=== PATIENT | female | born 1930 | race Hispanic/Latino ===

== ENCOUNTER 2016-08-03 12:17 | Inpatient (IN) | payer MEDICARE ==
--- NOTE | 2016-08-03 13:30 | Emergency Department Report ---
HPI - General Chief Complaint: Altered Mental Status Time Seen by Provider: 08/03/16 13:09 - HPI HPI: Room 26 The patient is an 86-year-old female presenting with a chief complaint of altered mental status. The patient is currently at [facility]. The patient was reported to have altered mental status as her current mental status differs from her baseline. The patient appears sleepy but awakens to voice and has nonsensical speech. The patient has a history of dementia Location: Mental state Duration: [see above] Quality: Altered Severity: Moderate Modifying factors: [see above] Context: [see above] Mode of transportation: [not driving] ED Past Medical Hx - Past Medical History Previous Medical History?: Yes Hx Hypertension: Yes Hx Headaches / Migraines: Yes Hx Psychiatric Treatment: (depression) Hx Dementia: Yes Additional medical history: high cholesterol, DDD - Surgical History Past Surgical History?: Yes Hx Cholecystectomy: Yes Hx Appendectomy: Yes Additional Surgical History: hysterectomy, bilateral hip replacement, tonsillectomy - Family History Family history: no significant - Social History Smoking Status: Unknown if ever smoked Substance Use Type: None - Medications Home Medications: Home Medications Medication Instructions Recorded Confirmed Last Taken Type Carvedilol [Coreg] 3.125 mg PO BID 08/03/16 08/03/16 Unknown History Divalproex [Suzie MASON] 250 mg PO BID 08/03/16 08/03/16 Unknown History Donepezil [Aricept] 10 mg PO QHS 08/03/16 08/03/16 Unknown History Escitalopram Oxalate [Lexapro] 5 mg PO QAM 08/03/16 08/03/16 Unknown History Lisinopril [Zestril] 20 mg PO QAM 08/03/16 08/03/16 Unknown History [place] Carbonate 300 mg PO QHS 08/03/16 08/03/16 Unknown History Memantine HCl [Namenda] 5 mg PO QAM 08/03/16 08/03/16 Unknown History Pantoprazole [Protonix] 40 mg PO QAM 08/03/16 08/03/16 Unknown History Quetiapine Fumarate [SEROquel] 50 mg PO BID 08/03/16 08/03/16 Unknown History Simvastatin [Zocor TAB] 20 mg PO QHS 08/03/16 08/03/16 Unknown History Topiramate [Topamax TAB] 50 mg PO QAM 08/03/16 08/03/16 Unknown History ED Review of Systems ROS: Stated complaint: AMS Other details as noted in HPI Comment: Unobtainable due to pts medical conditions Physical Exam - Physical Exam Vital Signs: Vital Signs 08/03/16 12:48 Pulse Rate 65 Respiratory 14 Rate Blood Pressure 140/47 O2 Sat by Pulse 100 Oximetry Physical Exam: GENERAL: The patient is well-developed well-nourished elderly female lying on stretcher asleep but easily awakens to voice. [] HEENT: Normocephalic. Atraumatic. Extraocular motions are intact. Patient has moist mucous membranes. NECK: Supple. Trachea midline CHEST/LUNGS: Clear to auscultation. There is no respiratory distress noted. HEART/CARDIOVASCULAR: Regular. There is no tachycardia. There is no gallop rub or murmur. ABDOMEN: Abdomen is soft, nontender. Patient has normal bowel sounds. There is no abdominal distention. SKIN: There is no rash. There is no edema. There is no diaphoresis. NEURO: The patient is asleep but easily awakened by voice. The patient has nonsensical speech. The patient is cooperative. MUSCULOSKELETAL: There is no tenderness. The right lower extremity is flexed at the hip and knee and internally rotated. Questionable deformity at the right hip. Patient does not exhibit pain when the right lower extremity is moved. ED Course Vital Signs 08/03/16 12:48 Pulse Rate 65 Respiratory 14 Rate Blood Pressure 140/47 O2 Sat by Pulse 100 Oximetry ED Medical Decision Making - Lab Data Result diagrams: 08/03/16 13:22 08/03/16 13:22 Laboratory Tests 08/03/16 08/03/16 08/03/16 13:22 13:22 13:22 WBC 10.0 RBC 4.58 Hgb 14.0 Hct 42.2 MCV 92 MCH 31 MCHC 33 RDW 14.2 Plt Count 183 Lymph % (Auto) 12.1 L [place] % (Auto) 6.6 Eos % (Auto) 1.8 Baso % (Auto) 0.5 Lymph # 1.2 [place] # 0.7 Eos # 0.2 Baso # 0.0 Seg Neutrophils % 79.0 H Seg Neutrophils # 7.9 H Sodium 139 Potassium 4.7 Chloride 103.0 Carbon Dioxide 24 Anion Gap 17 BUN 47 H Creatinine 1.5 H Estimated GFR 33 BUN/Creatinine Ratio 31.33 Glucose 108 H Calcium 9.0 Magnesium 2.6 H Total Bilirubin 0.3 AST 16 ALT 9 Alkaline Phosphatase 51 Ammonia 28.0 Total Creatine Kinase CK-MB (CK-2) CK-MB (CK-2) Rel Index Troponin T Total Protein 7.3 Albumin 4.0 Albumin/Globulin Ratio 1.2 TSH Free T4 Urine Bilirubin Urine RBC (Auto) U Epithel Cells (Auto) 08/03/16 08/03/16 08/03/16 13:22 13:22 14:51 WBC RBC Hgb Hct MCV MCH MCHC RDW Plt Count Lymph % (Auto) [place] % (Auto) Eos % (Auto) Baso % (Auto) Lymph # [place] # Eos # Baso # Seg Neutrophils % Seg Neutrophils # Sodium Potassium Chloride Carbon Dioxide Anion Gap BUN Creatinine Estimated GFR BUN/Creatinine Ratio Glucose Calcium Magnesium Total Bilirubin AST ALT Alkaline Phosphatase Ammonia Total Creatine Kinase 28 L CK-MB (CK-2) 1.1 CK-MB (CK-2) Rel Index 3.9 Troponin T < 0.010 Total Protein Albumin Albumin/Globulin Ratio TSH 5.860 H Free T4 1.08 Urine Bilirubin Neg Urine RBC (Auto) < 1.0 U Epithel Cells (Auto) < 1.0 15:18 Unresulted labs still pending secondary to equipment maintenance - EKG Data -: EKG Interpreted by Me EKG shows normal: sinus rhythm Rate: normal - EKG Data When compared to previous EKG there are: previous EKG unavailable Interpretation: nonspecific ST-T wave courtney (T-wave inversion in lead 1 and aVL) - Radiology Data Radiology results: report reviewed (CT head), image reviewed (CT head, bilateral hip x-rays) interpreted by me: Bilateral hip x-rays-no acute fractures, no dislocations. Bilateral hardware in place CT head (read by radiologist)-no acute intracranial CT abnormality with age- appropriate atrophy and extensive microvascular changes. - Differential Diagnosis overmedication, hip dislocation, ACS, dehydration, ICH Critical care attestation.: If time is entered above; I have spent that time in minutes in the direct care of this critically ill patient, excluding procedure time. ED Disposition Clinical Impression: Altered mental status Disposition: OP ADMITTED IP TO THIS HOSP Is pt being admited?: Yes Does the pt Need Aspirin: Yes Condition: Stable Referrals: AB GOSS MD [Primary Care Provider] - 3-5 Days Time of Disposition: 15:18 (hospitalist paged)
--- NOTE | 2016-08-03 13:39 | Admit Criteria Form ---
Admission Criteria Documentation: MENTAL STATUS CHANGE Clinical Indications for Inpatient Care (Place 'X' for any and all applicable criteria): Ongoing inpatient care may be needed for ANY ONE of the following(1)(2)(3)(5)(6) : [ ]I. Suspected serious etiology (eg, medical disorder, POLICE RECORDS CLERK event) of mental status change [ ]II. Danger to self or others not manageable at lower level of care [ ]III. Grave disability (eg, inability to perform self care necessary at lower level of care) [ ]IV. Agitation or inappropriate behavior interfering with care for primary condition (eg, attempting to discontinue lines or drains prematurely, unable to cooperate with respiratory care) [ ]V. Delirium [A] [D][E] as described by ANY ONE of the following(26): [ ]a) Delirium due to alcohol or sedative [F] withdrawal [ ]b) Delirium of uncertain etiology that has not responded to appropriate empiric treatment [ ]c) Delirium that prevents performance of a life-sustaining function (eg, feeding or hydrating oneself) [X ]. General contraindications and/or Inappropriate clinical situations for Observational Care in patients with Mental Status Change, when ANY ONE of the following is required: [ X]a) Prediction of prolongation of LOS based on ANY ONE of the following may be considered as a contraindication for observational care 2, 3, 4, 5, 6, 7, 8, 9, 10, 11 [ X]i) Age > 65 yrs. [ ]ii) Patient arriving by ambulance [ ]iii) Patient with high acuity [ ]iv) Patient requiring vital sign monitoring [ ]v) Patient on IV medication [ ]b) Systolic blood pressures 180mmHg 3,12 [ ]c) Patient with altered mental status including delirium and other alteration of consciousness, (3) [ ]d) Patient whose discharge disposition will be to a senior care home or rehabilitation home should not be managed in Emergency Department Observation Unit. CMS rule requires 3 days hospital stay before such placement.3,13 [ ]e) Patient with failure to thrive due to broad array of etiologies 3,16,17 [ ]f) Inability to ambulate 3,14 Extended stay beyond goal length of stay for the primary condition may be needed until ALL of the following are present(3)(5): [ ]a) Underlying medical etiology of mental status change is absent, or has been established and adequately treated [ ]b) Danger to self or others is absent or manageable at lower level of care. [ ]c) Behavior crisis management, including physical or chemical restraints, is not required or available at lower level of car [ ]d) Substance or alcohol withdrawal is absent or manageable at lower level of care. [ ]e) Behavioral symptoms (eg, agitation, somnolence, inappropriate behavior) are absent, or are manageable at lower level of care. The original [facility] [employer] content created by [facility] has been revised. The portions of the content which have been revised are identified through the use of italic text or in bold, and [facility] has neither reviewed nor approved the modified material. All other unmodified content is copyright [facility]. Please see references footnoted in the original [facility] edition 2016 Admission Criteria Met: Yes
[2016-08-03 13:56] LABS: Basophils % (Auto) 0.5 % (0.0-1.8); Eosinophils % (Auto) 1.8 % (0.0-4.3); Hematocrit 42.2 % (30.3-42.9); Mean Corpuscular HGB Conc 33 % (30-34); Mean Corpuscular Hemoglobin 31 pg (28-32); Mean Corpuscular Volume 92 fl (79-97); Platelet Count 183 K/mm3 (140-440); Red Blood Count 4.58 M/mm3 (3.65-5.03); Red Cell Distribution Width 14.2 % (13.2-15.2)
[2016-08-03 14:12] LABS: Albumin/Globulin Ratio 1.2 %; BUN/Creatinine Ratio 31.33; Bilirubin,Total 0.3 mg/dL (0.1-1.2); Magnesium 2.6 mg/dL (1.7-2.3); Potassium 4.7 mmol/L (3.6-5.0); Total Protein 7.3 g/dL (6.3-8.2)
[2016-08-03 14:13] LABS: Creatine Kinase 28 units/L (30-135); Creatine Kinase MB 1.1 ng/mL (0.0-4.0)
--- NOTE | 2016-08-03 14:15 | Cat Scan Report ---
CT HEAD WITHOUT CONTRAST INDICATION: Altered mental status. COMPARISON: None similar. FINDINGS: Noncontrast head CT demonstrates age-appropriate, symmetric mildly enlarged ventricles and sulci. Extensive periventricular and white matter hypodensities represent small vessel end artery ischemic disease. No definite acute infarct, hemorrhage, mass effect or shift, though accurate detection compromised in this setting. No abnormal extra-axial fluid collections. Posterior fossa structures and basilar cisterns appear within normal limits. Bilateral cataract surgery. Extensive atherosclerotic internal carotid artery calcifications. Left vertebral artery dominant with left more than right vertebral artery calcifications as well. Clear visualized paranasal sinuses and mastoid air cells. Intact calvarium and scalp. Numerous radiopaque dental material. Cervical spondylosis. CONCLUSION: 1. No acute intracranial CT abnormality with age-appropriate atrophy and extensive microvascular changes. 2. Few other incidental findings, as above. Thank you for the opportunity to participate in this patient's care.
--- NOTE | 2016-08-03 14:33 | XRay Report ---
Bilateral hips: AP and frog lateral views of both hips are obtained. The positioning is not optimal and normal projections are not obtained due to patient hostility according to technologist. There are bilateral hip prostheses. The prostheses are of different types. There are no dislocations. The acetabular and femoral components of both hips appear to be well applied and positioned. No evidence of loosening. I have no prior exams for comparison. Impression: Compromise evaluation of bilateral hip prostheses with no apparent complication identified.
[2016-08-03 14:57] LABS: Urine Drugs of Abuse Note Disclamer
[2016-08-03 15:15] LABS: Bilirubin,Urine NEG (Negative); Blood,Urine NEG (Negative); Ketones,Urine TR mg/dL (Negative); Leukocyte Esterase,Urine NEG (Negative); Mucus,Urine FEW /HPF; Nitrite,Urine NEG (Negative); Protein,Urine <15 mg/dL mg/dL (Negative); RBC,Urine < 1.0 /HPF (0.0-6.0); Urobilinogen,Urine < 2.0 mg/dL (<2.0); WBC,Urine < 1.0 /HPF (0.0-6.0)
--- NOTE | 2016-08-03 15:57 | History and Physical Report ---
History of Present Illness Date of examination: 08/03/16 Date of admission: 08/03/16 Chief complaint: referred from [facility] Altered mental status History of present illness: Patient unable to give history; family present; history taken from ER notes Miss Barry is an 86 yo F with h/o dementia and depression for from [place] for management of altered mental status; no other history available. Past History Past Medical History: hypertension, other (dementia, depression) Past Surgical History: Other (unable to obtain) Social history: other (unable to obtain) Family history: other (unable to obtain) Medications and Allergies Allergies Allergy/AdvReac Type Severity Reaction Status Date / Time sertraline HCl [From Zoloft] Allergy Unknown Verified 08/03/16 13:01 venlafaxine HCl Allergy Unknown Verified 08/03/16 13:01 [From Effexor] Home Medications Medication Instructions Recorded Confirmed Last Taken Type Carvedilol [Coreg] 3.125 mg PO BID 08/03/16 08/03/16 Unknown History Divalproex [Suzie MASON] 250 mg PO BID 08/03/16 08/03/16 Unknown History Donepezil [Aricept] 10 mg PO QHS 08/03/16 08/03/16 Unknown History Escitalopram Oxalate [Lexapro] 5 mg PO QAM 08/03/16 08/03/16 Unknown History Lisinopril [Zestril] 20 mg PO QAM 08/03/16 08/03/16 Unknown History [place] Carbonate 300 mg PO QHS 08/03/16 08/03/16 Unknown History Memantine HCl [Namenda] 5 mg PO QAM 08/03/16 08/03/16 Unknown History Pantoprazole [Protonix] 40 mg PO QAM 08/03/16 08/03/16 Unknown History Quetiapine Fumarate [SEROquel] 50 mg PO BID 08/03/16 08/03/16 Unknown History Simvastatin [Zocor TAB] 20 mg PO QHS 08/03/16 08/03/16 Unknown History Topiramate [Topamax TAB] 50 mg PO QAM 08/03/16 08/03/16 Unknown History Active Meds: Active Medications Haloperidol Lactate (Haldol) 2 mg IM Q6H PRN PRN Reason: Agitation Review of Systems ROS unobtainable: due to mental status Exam - Constitutional Vitals: Temp Pulse Resp BP Pulse Ox 65 14 131/31 100 08/03/16 12:48 08/03/16 14:57 08/03/16 14:52 08/03/16 14:57 General appearance: Present: no acute distress, other (agitated, incomprehensible speech) - EENT Eyes: Present: PERRL, EOM intact. Absent: scleral icterus, conjunctival injection ENT: hearing intact, clear oral mucosa, no oropharyngeal erythema, no poor dentition - Neck Neck: Present: supple, normal ROM. Absent: enlarged thyroid, masses or JVD - Respiratory Respiratory effort: normal Respiratory: negative: diminished, rales, rhonchi, wheezing - Cardiovascular Rhythm: regular Heart Sounds: Present: S1 & S2. Absent: gallop - Extremities Extremities: no ischemia, pulses intact, pulses symmetrical, No edema - Abdominal General gastrointestinal: Present: soft, non-tender, non-distended, normal bowel sounds Female genitourinary: Present: deferred - Rectal Rectal Exam: deferred - Integumentary Integumentary: Present: clear - Musculoskeletal Musculoskeletal: strength equal bilaterally - Psychiatric Psychiatric: agitated - Neurologic Neurologic: moves all extremities, other (does not obey commands, she is agitated) Results - Labs CBC & Chem 7: 08/03/16 13:22 08/03/16 13:22 Labs: Abnormal lab results 08/03/16 08/03/16 08/03/16 Range/Units 13:22 13:22 13:22 Lymph % (Auto) 12.1 L (13.4-35.0) % Seg Neutrophils % 79.0 H (40.0-70.0) % Seg Neutrophils # 7.9 H (1.8-7.7) K/mm3 BUN 47 H (7-17) mg/dL Creatinine 1.5 H (0.7-1.2) mg/dL Glucose 108 H (65-100) mg/dL Magnesium 2.6 H (1.7-2.3) mg/dL Total Creatine Kinase 28 L (30-135) units/L TSH (0.270-4.200) mlU/mL 08/03/16 Range/Units 13:22 Lymph % (Auto) (13.4-35.0) % Seg Neutrophils % (40.0-70.0) % Seg Neutrophils # (1.8-7.7) K/mm3 BUN (7-17) mg/dL Creatinine (0.7-1.2) mg/dL Glucose (65-100) mg/dL Magnesium (1.7-2.3) mg/dL Total Creatine Kinase (30-135) units/L TSH 5.860 H (0.270-4.200) mlU/mL - Imaging and Cardiology CT Scan - head: report reviewed (age appropriate atrophy) Assessment and Plan 1. Metabolic encephalopathy vs woresening dementia- will admit as an inpatient as more than 2 [place] are required for treatment; f/u lithium and depakote levels and hold meds until levels obtained; U/A not suggestive of UTI and CT head- no acute abn; IVF for hydration; haldol 2mg q4h prn agitation; consult psyche 2. Dementia - supportive care for now; restart aricept and namenda 3. Benign HTN - restart home meds; monitor BP and adjust as needed 4. DVT prophylaxis- heparin
[2016-08-03] MEDS ORDERED: ZOFRAN IV PRN (17:19)
[2016-08-03] MEDS ORDERED: REGLAN IV PRN (17:19)
[2016-08-03] MEDS ORDERED: TYLENOL PO PRN (17:19)
[2016-08-03 17:29] LABS: Valproate 71.4 ug/mL (50-100)
[2016-08-03 17:34] LABS: Salicylate < 0.3 mg/dL (2.8-20.0)
[2016-08-03 17:36] LABS: Lithium 1.6 mmol/L (0.0-1.2)
[2016-08-03] MEDS: HALDOL IM PRN (18:25)
[2016-08-03] MEDS: NACL 0.45% 1000 ML 1,000 ML IV SCH (18:27)
[2016-08-03] MEDS ORDERED: ZOCOR ONE (22:22)
[2016-08-03] MEDS ORDERED: HEPARIN ONE (22:22)
[2016-08-03] MEDS ORDERED: COREG ONE (22:22)
[2016-08-03] MEDS: COREG PO SCH (22:32)
[2016-08-03] MEDS: HEPARIN SUB-Q SCH (22:33)
[2016-08-03] MEDS: ZOCOR PO SCH (22:37)
[2016-08-04] MEDS: APRESOLINE IV PRN ×2 (01:48→21:28)
[2016-08-04] MEDS: NACL 0.45% 1000 ML 1,000 ML IV SCH ×2 (07:09→18:02)
[2016-08-04] MEDS: ZESTRIL PO SCH (10:49)
[2016-08-04] MEDS: COREG PO SCH ×3 (10:49→23:49)
[2016-08-04] MEDS: PROTONIX PO SCH (10:49)
[2016-08-04] MEDS: HEPARIN SUB-Q SCH ×2 (10:50→21:00)
--- NOTE | 2016-08-04 14:15 | Progress Note ---
Assessment and Plan Assessment and plan: Acute toxic metabolic encephalopathy due to [place] toxicity. [place] on hold. Will repeat level in am. [place] level 1.6 on admission. Dementia at baseline. Resume Aricept, Namenda Hypertension continue Coreg and lisinopril. DVT prophylaxis with Heparin subcut bid. Full code status History Interval history: still confused, no fever Hospitalist Physical - Physical exam Narrative exam: Gen appearance : Not in acute distress, HEENT: Normocephalic, atraumatic Neck: supple, no JVD. Lungs: clear to auscultation bilaterally, no crackles no wheezes Heart: S1 and S2 regular, no murmurs, rubs or gallop Abdomen: soft, non-tender, non-distended normal bowel sounds Extremities: No edema, no clubbing or cyanosis Neuro: Awake alert, not oriented to person,place or time, confused, moves all ext, no focal signs - Constitutional Vitals: Temp Pulse Resp BP Pulse Ox 98 F 76 18 157/64 99 08/04/16 09:00 08/04/16 09:00 08/04/16 09:00 08/04/16 09:00 08/04/16 09:00 Results - Labs CBC & Chem 7: 08/03/16 13:22 08/03/16 13:22 Labs: Laboratory Last Values WBC 10.0 K/mm3 (4.5-11.0) 08/03/16 13:22 RBC 4.58 M/mm3 (3.65-5.03) 08/03/16 13:22 Hgb 14.0 gm/dl (10.1-14.3) 08/03/16 13:22 Hct 42.2 % (30.3-42.9) 08/03/16 13:22 MCV 92 fl (79-97) 08/03/16 13:22 MCH 31 pg (28-32) 08/03/16 13:22 MCHC 33 % (30-34) 08/03/16 13:22 RDW 14.2 % (13.2-15.2) 08/03/16 13:22 Plt Count 183 K/mm3 (140-440) 08/03/16 13:22 Lymph % (Auto) 12.1 % (13.4-35.0) L 08/03/16 13:22 [place] % (Auto) 6.6 % (0.0-7.3) 08/03/16 13:22 Eos % (Auto) 1.8 % (0.0-4.3) 08/03/16 13:22 Baso % (Auto) 0.5 % (0.0-1.8) 08/03/16 13:22 Lymph # 1.2 K/mm3 (1.2-5.4) 08/03/16 13:22 [place] # 0.7 K/mm3 (0.0-0.8) 08/03/16 13:22 Eos # 0.2 K/mm3 (0.0-0.4) 08/03/16 13:22 Baso # 0.0 K/mm3 (0.0-0.1) 08/03/16 13:22 Seg Neutrophils % 79.0 % (40.0-70.0) H 08/03/16 13:22 Seg Neutrophils # 7.9 K/mm3 (1.8-7.7) H 08/03/16 13:22 Sodium 139 mmol/L (137-145) 08/03/16 13:22 Potassium 4.7 mmol/L (3.6-5.0) 08/03/16 13:22 Chloride 103.0 mmol/L (98-107) 08/03/16 13:22 Carbon Dioxide 24 mmol/L (22-30) 08/03/16 13:22 Anion Gap 17 mmol/L 08/03/16 13:22 BUN 47 mg/dL (7-17) H 08/03/16 13:22 Creatinine 1.5 mg/dL (0.7-1.2) H 08/03/16 13:22 Estimated GFR 33 ml/min 08/03/16 13:22 BUN/Creatinine Ratio 31.33 % 08/03/16 13:22 Glucose 108 mg/dL (65-100) H 08/03/16 13:22 POC Glucose 120 (70-105) H 08/04/16 12:47 Calcium 9.0 mg/dL (8.4-10.2) 08/03/16 13:22 Magnesium 2.6 mg/dL (1.7-2.3) H 08/03/16 13:22 Total Bilirubin 0.3 mg/dL (0.1-1.2) 08/03/16 13:22 AST 16 units/L (5-40) 08/03/16 13:22 ALT 9 units/L (7-56) 08/03/16 13:22 Alkaline Phosphatase 51 units/L (35-129) 08/03/16 13:22 Ammonia 28.0 umol/L (25-60) 08/03/16 13:22 Total Creatine Kinase 28 units/L (30-135) L 08/03/16 13:22 CK-MB (CK-2) 1.1 ng/mL (0.0-4.0) 08/03/16 13:22 CK-MB (CK-2) Rel Index 3.9 (0-4) 08/03/16 13:22 Troponin T < 0.010 ng/mL (0.00-0.029) 08/03/16 13:22 Total Protein 7.3 g/dL (6.3-8.2) 08/03/16 13:22 Albumin 4.0 g/dL (3.9-5) 08/03/16 13:22 Albumin/Globulin Ratio 1.2 % 08/03/16 13:22 TSH 5.860 mlU/mL (0.270-4.200) H 08/03/16 13:22 Free T4 1.08 ng/dL (0.76-1.46) 08/03/16 13:22 Urine Color Yellow (Yellow) 08/03/16 14:51 Urine Turbidity Cloudy (Clear) 08/03/16 14:51 Urine pH 6.0 (5.0-7.0) 08/03/16 14:51 Ur Specific [place] 1.018 (1.003-1.030) 08/03/16 14:51 Urine Protein <15 mg/dl mg/dL (Negative) 08/03/16 14:51 Urine Glucose (UA) Neg mg/dL (Negative) 08/03/16 14:51 Urine Ketones Tr mg/dL (Negative) 08/03/16 14:51 Urine Blood Neg (Negative) 08/03/16 14:51 Urine Nitrite Neg (Negative) 08/03/16 14:51 Urine Bilirubin Neg (Negative) 08/03/16 14:51 Urine Urobilinogen < 2.0 mg/dL (<2.0) 08/03/16 14:51 Ur Leukocyte Esterase Neg (Negative) 08/03/16 14:51 Urine WBC (Auto) < 1.0 /HPF (0.0-6.0) 08/03/16 14:51 Urine RBC (Auto) < 1.0 /HPF (0.0-6.0) 08/03/16 14:51 U Epithel Cells (Auto) < 1.0 /HPF (0-13.0) 08/03/16 14:51 Urine Mucus Few /HPF 08/03/16 14:51 Salicylates < 0.3 mg/dL (2.8-20.0) L 08/03/16 13:22 Urine Opiates Screen Presumptive negative 08/03/16 14:51 Urine Methadone Screen Presumptive negative 08/03/16 14:51 Acetaminophen < 15.0 ug/mL (10.0-30.0) 08/03/16 13:22 Ur Barbiturates Screen Presumptive negative 08/03/16 14:51 Valproic Acid 71.4 ug/mL (50-100) 08/03/16 13:22 Ur Phencyclidine Scrn Presumptive negative 08/03/16 14:51 Ur Amphetamines Screen Presumptive negative 08/03/16 14:51 U Benzodiazepines Scrn Presumptive negative 08/03/16 14:51 [place] 1.3 mmol/L (0.0-1.2) H 08/04/16 10:52 Urine Cocaine Screen Presumptive negative 08/03/16 14:51 U Marijuana (THC) Screen Presumptive negative 08/03/16 14:51 Drugs of Abuse Note Disclamer 08/03/16 14:51 Plasma/Serum Alcohol < 0.01 gm% (0-0.07) 08/03/16 13:22
[2016-08-04] MEDS: ECOTRIN PO SCH (18:02)
[2016-08-04] MEDS: HALDOL IM PRN (18:52)
[2016-08-04] MEDS: ZOCOR PO SCH ×2 (21:00→23:49)
[2016-08-05 10:07] LABS: Calcium 8.7 mg/dL (8.4-10.2); Chloride 100.9 mmol/L (98-107); Potassium 3.6 mmol/L (3.6-5.0)
--- NOTE | 2016-08-05 10:37 | Progress Note ---
Assessment and Plan Assessment and plan: Acute toxic metabolic encephalopathy due to [place] toxicity. [place] was on hold. [place] level now normal today, was 1.6 on admission. Dementia at baseline. Resume Aricept, Namenda Hypertension continue Coreg and lisinopril. DVT prophylaxis with Heparin subcut bid. Full code status Disposition: for SNF placement. Discussed case with case management History Interval history: still confused, no fever Hospitalist Physical - Physical exam Narrative exam: Gen appearance : Not in acute distress, HEENT: Normocephalic, atraumatic Neck: supple, no JVD. Lungs: clear to auscultation bilaterally, no crackles no wheezes Heart: S1 and S2 regular, no murmurs, rubs or gallop Abdomen: soft, non-tender, non-distended normal bowel sounds Extremities: No edema, no clubbing or cyanosis Neuro: Awake alert, not oriented to person,place or time, confused, moves all ext, no focal signs - Constitutional Vitals: Temp Pulse Resp BP Pulse Ox 97.4 F L 95 H 20 156/67 100 08/05/16 04:26 08/05/16 04:26 08/05/16 04:26 08/05/16 04:26 08/04/16 17:00 General appearance: Present: no acute distress, other (agitated, incomprehensible speech) Results - Labs CBC & Chem 7: 08/03/16 13:22 08/05/16 09:25 Labs: Laboratory Last Values WBC 10.0 K/mm3 (4.5-11.0) 08/03/16 13:22 RBC 4.58 M/mm3 (3.65-5.03) 08/03/16 13:22 Hgb 14.0 gm/dl (10.1-14.3) 08/03/16 13:22 Hct 42.2 % (30.3-42.9) 08/03/16 13:22 MCV 92 fl (79-97) 08/03/16 13:22 MCH 31 pg (28-32) 08/03/16 13:22 MCHC 33 % (30-34) 08/03/16 13:22 RDW 14.2 % (13.2-15.2) 08/03/16 13:22 Plt Count 183 K/mm3 (140-440) 08/03/16 13:22 Lymph % (Auto) 12.1 % (13.4-35.0) L 08/03/16 13:22 [place] % (Auto) 6.6 % (0.0-7.3) 08/03/16 13:22 Eos % (Auto) 1.8 % (0.0-4.3) 08/03/16 13:22 Baso % (Auto) 0.5 % (0.0-1.8) 08/03/16 13:22 Lymph # 1.2 K/mm3 (1.2-5.4) 08/03/16 13:22 [place] # 0.7 K/mm3 (0.0-0.8) 08/03/16 13:22 Eos # 0.2 K/mm3 (0.0-0.4) 08/03/16 13:22 Baso # 0.0 K/mm3 (0.0-0.1) 08/03/16 13:22 Seg Neutrophils % 79.0 % (40.0-70.0) H 08/03/16 13:22 Seg Neutrophils # 7.9 K/mm3 (1.8-7.7) H 08/03/16 13:22 Sodium 137 mmol/L (137-145) 08/05/16 09:25 Potassium 3.6 mmol/L (3.6-5.0) D 08/05/16 09:25 Chloride 100.9 mmol/L (98-107) 08/05/16 09:25 Carbon Dioxide 22 mmol/L (22-30) 08/05/16 09:25 Anion Gap 18 mmol/L 08/05/16 09:25 BUN 27 mg/dL (7-17) H 08/05/16 09:25 Creatinine 0.9 mg/dL (0.7-1.2) 08/05/16 09:25 Estimated GFR 59 ml/min 08/05/16 09:25 BUN/Creatinine Ratio 30.00 % 08/05/16 09:25 Glucose 123 mg/dL (65-100) H 08/05/16 09:25 POC Glucose 124 (70-105) H 08/05/16 06:07 Calcium 8.7 mg/dL (8.4-10.2) 08/05/16 09:25 Magnesium 2.6 mg/dL (1.7-2.3) H 08/03/16 13:22 Total Bilirubin 0.3 mg/dL (0.1-1.2) 08/03/16 13:22 AST 16 units/L (5-40) 08/03/16 13:22 ALT 9 units/L (7-56) 08/03/16 13:22 Alkaline Phosphatase 51 units/L (35-129) 08/03/16 13:22 Ammonia 28.0 umol/L (25-60) 08/03/16 13:22 Total Creatine Kinase 28 units/L (30-135) L 08/03/16 13:22 CK-MB (CK-2) 1.1 ng/mL (0.0-4.0) 08/03/16 13:22 CK-MB (CK-2) Rel Index 3.9 (0-4) 08/03/16 13:22 Troponin T < 0.010 ng/mL (0.00-0.029) 08/03/16 13:22 Total Protein 7.3 g/dL (6.3-8.2) 08/03/16 13:22 Albumin 4.0 g/dL (3.9-5) 08/03/16 13:22 Albumin/Globulin Ratio 1.2 % 08/03/16 13:22 TSH 5.860 mlU/mL (0.270-4.200) H 08/03/16 13:22 Free T4 1.08 ng/dL (0.76-1.46) 08/03/16 13:22 Urine Color Yellow (Yellow) 08/03/16 14:51 Urine Turbidity Cloudy (Clear) 08/03/16 14:51 Urine pH 6.0 (5.0-7.0) 08/03/16 14:51 Ur Specific [place] 1.018 (1.003-1.030) 08/03/16 14:51 Urine Protein <15 mg/dl mg/dL (Negative) 08/03/16 14:51 Urine Glucose (UA) Neg mg/dL (Negative) 08/03/16 14:51 Urine Ketones Tr mg/dL (Negative) 08/03/16 14:51 Urine Blood Neg (Negative) 08/03/16 14:51 Urine Nitrite Neg (Negative) 08/03/16 14:51 Urine Bilirubin Neg (Negative) 08/03/16 14:51 Urine Urobilinogen < 2.0 mg/dL (<2.0) 08/03/16 14:51 Ur Leukocyte Esterase Neg (Negative) 08/03/16 14:51 Urine WBC (Auto) < 1.0 /HPF (0.0-6.0) 08/03/16 14:51 Urine RBC (Auto) < 1.0 /HPF (0.0-6.0) 08/03/16 14:51 U Epithel Cells (Auto) < 1.0 /HPF (0-13.0) 08/03/16 14:51 Urine Mucus Few /HPF 08/03/16 14:51 Salicylates < 0.3 mg/dL (2.8-20.0) L 08/03/16 13:22 Urine Opiates Screen Presumptive negative 08/03/16 14:51 Urine Methadone Screen Presumptive negative 08/03/16 14:51 Acetaminophen < 15.0 ug/mL (10.0-30.0) 08/03/16 13:22 Ur Barbiturates Screen Presumptive negative 08/03/16 14:51 Valproic Acid 71.4 ug/mL (50-100) 08/03/16 13:22 Ur Phencyclidine Scrn Presumptive negative 08/03/16 14:51 Ur Amphetamines Screen Presumptive negative 08/03/16 14:51 U Benzodiazepines Scrn Presumptive negative 08/03/16 14:51 [place] 0.8 mmol/L (0.0-1.2) 08/05/16 09:25 Urine Cocaine Screen Presumptive negative 08/03/16 14:51 U Marijuana (THC) Screen Presumptive negative 08/03/16 14:51 Drugs of Abuse Note Disclamer 08/03/16 14:51 Plasma/Serum Alcohol < 0.01 gm% (0-0.07) 08/03/16 13:22
[2016-08-05] MEDS: COREG PO SCH (12:20)
[2016-08-05] MEDS: HEPARIN SUB-Q SCH (12:21)
[2016-08-05] MEDS: ECOTRIN PO SCH (12:21)
[2016-08-05] MEDS: ZESTRIL PO SCH (12:22)
[2016-08-05] MEDS: PROTONIX PO SCH (12:22)
[2016-08-05] MEDS: NACL 0.45% 1000 ML 1,000 ML IV SCH (19:19)
[2016-08-06] MEDS: APRESOLINE IV PRN (00:46)
[2016-08-06] MEDS: NACL 0.45% 1000 ML 1,000 ML IV SCH ×2 (07:01→21:26)
[2016-08-06] MEDS: ZESTRIL PO SCH (10:59)
[2016-08-06] MEDS: COREG PO SCH ×3 (10:59→21:34)
[2016-08-06] MEDS: PROTONIX PO SCH (10:59)
[2016-08-06] MEDS: ECOTRIN PO SCH (10:59)
[2016-08-06] MEDS: HEPARIN SUB-Q SCH ×3 (11:00→21:29)
--- NOTE | 2016-08-06 12:34 | Progress Note ---
Assessment and Plan Assessment and plan: Acute toxic metabolic encephalopathy due to [place] toxicity. [place] was on hold. [place] level now normal, was 1.6 on admission. [place] due to ATN, now resolved. Dementia at baseline. Resumed Aricept, Namenda Hypertension continue Coreg and lisinopril. DVT prophylaxis with Heparin subcut bid. Full code status Disposition: for SNF placement. Discussed case with case management History Interval history: less confused, no fever Hospitalist Physical - Physical exam Narrative exam: Gen appearance : Not in acute distress, HEENT: Normocephalic, atraumatic Neck: supple, no JVD. Lungs: clear to auscultation bilaterally, no crackles no wheezes Heart: S1 and S2 regular, no murmurs, rubs or gallop Abdomen: soft, non-tender, non-distended normal bowel sounds Extremities: No edema, no clubbing or cyanosis Neuro: Awake alert, not oriented to person,place or time, less confused, moves all ext, no focal signs - Constitutional Vitals: Temp Pulse Resp BP Pulse Ox 98.6 F 79 20 174/74 98 08/06/16 08:00 08/06/16 08:00 08/06/16 08:00 08/06/16 10:59 08/06/16 08:00 General appearance: Present: no acute distress, other (agitated, incomprehensible speech) Results - Labs CBC & Chem 7: 08/03/16 13:22 08/05/16 09:25 Labs: Laboratory Last Values WBC 10.0 K/mm3 (4.5-11.0) 08/03/16 13:22 RBC 4.58 M/mm3 (3.65-5.03) 08/03/16 13:22 Hgb 14.0 gm/dl (10.1-14.3) 08/03/16 13:22 Hct 42.2 % (30.3-42.9) 08/03/16 13:22 MCV 92 fl (79-97) 08/03/16 13:22 MCH 31 pg (28-32) 08/03/16 13:22 MCHC 33 % (30-34) 08/03/16 13:22 RDW 14.2 % (13.2-15.2) 08/03/16 13:22 Plt Count 183 K/mm3 (140-440) 08/03/16 13:22 Lymph % (Auto) 12.1 % (13.4-35.0) L 08/03/16 13:22 [place] % (Auto) 6.6 % (0.0-7.3) 08/03/16 13:22 Eos % (Auto) 1.8 % (0.0-4.3) 08/03/16 13:22 Baso % (Auto) 0.5 % (0.0-1.8) 08/03/16 13:22 Lymph # 1.2 K/mm3 (1.2-5.4) 08/03/16 13:22 [place] # 0.7 K/mm3 (0.0-0.8) 08/03/16 13:22 Eos # 0.2 K/mm3 (0.0-0.4) 08/03/16 13:22 Baso # 0.0 K/mm3 (0.0-0.1) 08/03/16 13:22 Seg Neutrophils % 79.0 % (40.0-70.0) H 08/03/16 13:22 Seg Neutrophils # 7.9 K/mm3 (1.8-7.7) H 08/03/16 13:22 Sodium 137 mmol/L (137-145) 08/05/16 09:25 Potassium 3.6 mmol/L (3.6-5.0) D 08/05/16 09:25 Chloride 100.9 mmol/L (98-107) 08/05/16 09:25 Carbon Dioxide 22 mmol/L (22-30) 08/05/16 09:25 Anion Gap 18 mmol/L 08/05/16 09:25 BUN 27 mg/dL (7-17) H 08/05/16 09:25 Creatinine 0.9 mg/dL (0.7-1.2) 08/05/16 09:25 Estimated GFR 59 ml/min 08/05/16 09:25 BUN/Creatinine Ratio 30.00 % 08/05/16 09:25 Glucose 123 mg/dL (65-100) H 08/05/16 09:25 POC Glucose 119 (70-105) H 08/06/16 11:43 Calcium 8.7 mg/dL (8.4-10.2) 08/05/16 09:25 Magnesium 2.6 mg/dL (1.7-2.3) H 08/03/16 13:22 Total Bilirubin 0.3 mg/dL (0.1-1.2) 08/03/16 13:22 AST 16 units/L (5-40) 08/03/16 13:22 ALT 9 units/L (7-56) 08/03/16 13:22 Alkaline Phosphatase 51 units/L (35-129) 08/03/16 13:22 Ammonia 28.0 umol/L (25-60) 08/03/16 13:22 Total Creatine Kinase 28 units/L (30-135) L 08/03/16 13:22 CK-MB (CK-2) 1.1 ng/mL (0.0-4.0) 08/03/16 13:22 CK-MB (CK-2) Rel Index 3.9 (0-4) 08/03/16 13:22 Troponin T < 0.010 ng/mL (0.00-0.029) 08/03/16 13:22 Total Protein 7.3 g/dL (6.3-8.2) 08/03/16 13:22 Albumin 4.0 g/dL (3.9-5) 08/03/16 13:22 Albumin/Globulin Ratio 1.2 % 08/03/16 13:22 TSH 5.860 mlU/mL (0.270-4.200) H 08/03/16 13:22 Free T4 1.08 ng/dL (0.76-1.46) 08/03/16 13:22 Urine Color Yellow (Yellow) 08/03/16 14:51 Urine Turbidity Cloudy (Clear) 08/03/16 14:51 Urine pH 6.0 (5.0-7.0) 08/03/16 14:51 Ur Specific [place] 1.018 (1.003-1.030) 08/03/16 14:51 Urine Protein <15 mg/dl mg/dL (Negative) 08/03/16 14:51 Urine Glucose (UA) Neg mg/dL (Negative) 08/03/16 14:51 Urine Ketones Tr mg/dL (Negative) 08/03/16 14:51 Urine Blood Neg (Negative) 08/03/16 14:51 Urine Nitrite Neg (Negative) 08/03/16 14:51 Urine Bilirubin Neg (Negative) 08/03/16 14:51 Urine Urobilinogen < 2.0 mg/dL (<2.0) 08/03/16 14:51 Ur Leukocyte Esterase Neg (Negative) 08/03/16 14:51 Urine WBC (Auto) < 1.0 /HPF (0.0-6.0) 08/03/16 14:51 Urine RBC (Auto) < 1.0 /HPF (0.0-6.0) 08/03/16 14:51 U Epithel Cells (Auto) < 1.0 /HPF (0-13.0) 08/03/16 14:51 Urine Mucus Few /HPF 08/03/16 14:51 Salicylates < 0.3 mg/dL (2.8-20.0) L 08/03/16 13:22 Urine Opiates Screen Presumptive negative 08/03/16 14:51 Urine Methadone Screen Presumptive negative 08/03/16 14:51 Acetaminophen < 15.0 ug/mL (10.0-30.0) 08/03/16 13:22 Ur Barbiturates Screen Presumptive negative 08/03/16 14:51 Valproic Acid 71.4 ug/mL (50-100) 08/03/16 13:22 Ur Phencyclidine Scrn Presumptive negative 08/03/16 14:51 Ur Amphetamines Screen Presumptive negative 08/03/16 14:51 U Benzodiazepines Scrn Presumptive negative 08/03/16 14:51 [place] 0.8 mmol/L (0.0-1.2) 08/05/16 09:25 Urine Cocaine Screen Presumptive negative 08/03/16 14:51 U Marijuana (THC) Screen Presumptive negative 08/03/16 14:51 Drugs of Abuse Note Disclamer 08/03/16 14:51 Plasma/Serum Alcohol < 0.01 gm% (0-0.07) 08/03/16 13:22
[2016-08-06] MEDS: ZOCOR PO SCH ×2 (21:28)
[2016-08-07] MEDS: ZESTRIL PO SCH (10:39)
[2016-08-07] MEDS: ECOTRIN PO SCH (10:39)
[2016-08-07] MEDS: COREG PO SCH ×2 (10:40→23:23)
[2016-08-07] MEDS: PROTONIX PO SCH (10:41)
[2016-08-07] MEDS: HEPARIN SUB-Q SCH ×2 (10:48→23:24)
[2016-08-07] MEDS: NACL 0.45% 1000 ML 1,000 ML IV SCH (12:56)
--- NOTE | 2016-08-07 15:39 | Progress Note ---
Assessment and Plan Assessment and plan: Acute toxic metabolic encephalopathy due to [place] toxicity. [place] was on hold. [place] level now normal, was 1.6 on admission. Will resume [place] at lower dose RHIANNA due to ATN, now resolved. Dementia at baseline. Resumed Aricept, Namenda Hypertension continue Coreg and lisinopril. DVT prophylaxis with Heparin subcut bid. Full code status Disposition: for SNF placement. Discussed case with case management History Interval history: less confused, no fever, no headache Hospitalist Physical - Physical exam Narrative exam: Gen appearance : Not in acute distress, HEENT: Normocephalic, atraumatic Neck: supple, no JVD. Lungs: clear to auscultation bilaterally, no crackles no wheezes Heart: S1 and S2 regular, no murmurs, rubs or gallop Abdomen: soft, non-tender, non-distended normal bowel sounds Extremities: No edema, no clubbing or cyanosis Neuro: Awake alert, not oriented to person,place or time, less confused, moves all ext, no focal signs - Constitutional Vitals: Temp Pulse Resp BP Pulse Ox 97.6 F 85 20 179/69 98 08/07/16 08:42 08/07/16 10:40 08/07/16 08:42 08/07/16 10:40 08/07/16 08:42 General appearance: Present: no acute distress, other (agitated, incomprehensible speech) Results - Labs CBC & Chem 7: 08/03/16 13:22 08/05/16 09:25 Labs: Laboratory Last Values WBC 10.0 K/mm3 (4.5-11.0) 08/03/16 13:22 RBC 4.58 M/mm3 (3.65-5.03) 08/03/16 13:22 Hgb 14.0 gm/dl (10.1-14.3) 08/03/16 13:22 Hct 42.2 % (30.3-42.9) 08/03/16 13:22 MCV 92 fl (79-97) 08/03/16 13:22 MCH 31 pg (28-32) 08/03/16 13:22 MCHC 33 % (30-34) 08/03/16 13:22 RDW 14.2 % (13.2-15.2) 08/03/16 13:22 Plt Count 183 K/mm3 (140-440) 08/03/16 13:22 Lymph % (Auto) 12.1 % (13.4-35.0) L 08/03/16 13:22 [place] % (Auto) 6.6 % (0.0-7.3) 08/03/16 13:22 Eos % (Auto) 1.8 % (0.0-4.3) 08/03/16 13:22 Baso % (Auto) 0.5 % (0.0-1.8) 08/03/16 13:22 Lymph # 1.2 K/mm3 (1.2-5.4) 08/03/16 13:22 [place] # 0.7 K/mm3 (0.0-0.8) 08/03/16 13:22 Eos # 0.2 K/mm3 (0.0-0.4) 08/03/16 13:22 Baso # 0.0 K/mm3 (0.0-0.1) 08/03/16 13:22 Seg Neutrophils % 79.0 % (40.0-70.0) H 08/03/16 13:22 Seg Neutrophils # 7.9 K/mm3 (1.8-7.7) H 08/03/16 13:22 Sodium 137 mmol/L (137-145) 08/05/16 09:25 Potassium 3.6 mmol/L (3.6-5.0) D 08/05/16 09:25 Chloride 100.9 mmol/L (98-107) 08/05/16 09:25 Carbon Dioxide 22 mmol/L (22-30) 08/05/16 09:25 Anion Gap 18 mmol/L 08/05/16 09:25 BUN 27 mg/dL (7-17) H 08/05/16 09:25 Creatinine 0.9 mg/dL (0.7-1.2) 08/05/16 09:25 Estimated GFR 59 ml/min 08/05/16 09:25 BUN/Creatinine Ratio 30.00 % 08/05/16 09:25 Glucose 123 mg/dL (65-100) H 08/05/16 09:25 POC Glucose 100 (70-105) 08/07/16 06:11 Calcium 8.7 mg/dL (8.4-10.2) 08/05/16 09:25 Magnesium 2.6 mg/dL (1.7-2.3) H 08/03/16 13:22 Total Bilirubin 0.3 mg/dL (0.1-1.2) 08/03/16 13:22 AST 16 units/L (5-40) 08/03/16 13:22 ALT 9 units/L (7-56) 08/03/16 13:22 Alkaline Phosphatase 51 units/L (35-129) 08/03/16 13:22 Ammonia 28.0 umol/L (25-60) 08/03/16 13:22 Total Creatine Kinase 28 units/L (30-135) L 08/03/16 13:22 CK-MB (CK-2) 1.1 ng/mL (0.0-4.0) 08/03/16 13:22 CK-MB (CK-2) Rel Index 3.9 (0-4) 08/03/16 13:22 Troponin T < 0.010 ng/mL (0.00-0.029) 08/03/16 13:22 Total Protein 7.3 g/dL (6.3-8.2) 08/03/16 13:22 Albumin 4.0 g/dL (3.9-5) 08/03/16 13:22 Albumin/Globulin Ratio 1.2 % 08/03/16 13:22 TSH 5.860 mlU/mL (0.270-4.200) H 08/03/16 13:22 Free T4 1.08 ng/dL (0.76-1.46) 08/03/16 13:22 Urine Color Yellow (Yellow) 08/03/16 14:51 Urine Turbidity Cloudy (Clear) 08/03/16 14:51 Urine pH 6.0 (5.0-7.0) 08/03/16 14:51 Ur Specific [place] 1.018 (1.003-1.030) 08/03/16 14:51 Urine Protein <15 mg/dl mg/dL (Negative) 08/03/16 14:51 Urine Glucose (UA) Neg mg/dL (Negative) 08/03/16 14:51 Urine Ketones Tr mg/dL (Negative) 08/03/16 14:51 Urine Blood Neg (Negative) 08/03/16 14:51 Urine Nitrite Neg (Negative) 08/03/16 14:51 Urine Bilirubin Neg (Negative) 08/03/16 14:51 Urine Urobilinogen < 2.0 mg/dL (<2.0) 08/03/16 14:51 Ur Leukocyte Esterase Neg (Negative) 08/03/16 14:51 Urine WBC (Auto) < 1.0 /HPF (0.0-6.0) 08/03/16 14:51 Urine RBC (Auto) < 1.0 /HPF (0.0-6.0) 08/03/16 14:51 U Epithel Cells (Auto) < 1.0 /HPF (0-13.0) 08/03/16 14:51 Urine Mucus Few /HPF 08/03/16 14:51 Salicylates < 0.3 mg/dL (2.8-20.0) L 08/03/16 13:22 Urine Opiates Screen Presumptive negative 08/03/16 14:51 Urine Methadone Screen Presumptive negative 08/03/16 14:51 Acetaminophen < 15.0 ug/mL (10.0-30.0) 08/03/16 13:22 Ur Barbiturates Screen Presumptive negative 08/03/16 14:51 Valproic Acid 71.4 ug/mL (50-100) 08/03/16 13:22 Ur Phencyclidine Scrn Presumptive negative 08/03/16 14:51 Ur Amphetamines Screen Presumptive negative 08/03/16 14:51 U Benzodiazepines Scrn Presumptive negative 08/03/16 14:51 [place] 0.8 mmol/L (0.0-1.2) 08/05/16 09:25 Urine Cocaine Screen Presumptive negative 08/03/16 14:51 U Marijuana (THC) Screen Presumptive negative 08/03/16 14:51 Drugs of Abuse Note Disclamer 08/03/16 14:51 Plasma/Serum Alcohol < 0.01 gm% (0-0.07) 08/03/16 13:22
[2016-08-07] MEDS: APRESOLINE IV PRN ×2 (17:19→17:21)
[2016-08-07] MEDS: ZOCOR PO SCH (23:22)
[2016-08-08] MEDS: NACL 0.45% 1000 ML 1,000 ML IV SCH (06:39)
[2016-08-08] MEDS: ECOTRIN PO SCH (13:20)
[2016-08-08] MEDS: COREG PO SCH (13:20)
[2016-08-08] MEDS: PROTONIX PO SCH (13:21)
[2016-08-08] MEDS: HEPARIN SUB-Q SCH ×2 (13:21→22:52)
[2016-08-08] MEDS: ZESTRIL PO SCH (13:22)
[2016-08-08 13:29] LABS: Bacteria,Urine 4+ /HPF (Negative); Bilirubin,Urine NEG (Negative); Blood,Urine SM (Negative); Ketones,Urine 20 mg/dL (Negative); Leukocyte Esterase,Urine SM (Negative); Nitrite,Urine NEG (Negative)
--- NOTE | 2016-08-08 13:52 | Progress Note ---
Assessment and Plan Assessment and plan: Acute toxic metabolic encephalopathy due to [place] toxicity. [place] was on hold. [place] level now normal, was 1.6 on admission. Will resume [place] at lower dose. UTI. Urinalysis today shows UTI. Get Urine culture, Start Levaquin. RHIANNA due to ATN, now resolved. Dementia at baseline. Resumed Aricept, [place] Hypertension continue Coreg and lisinopril. DVT prophylaxis with Heparin subcut bid. Full code status Disposition: for SNF placement. Discussed case with case management History Interval history: less confused, no fever, no headache Hospitalist Physical - Physical exam Narrative exam: Gen appearance : Not in acute distress, HEENT: Normocephalic, atraumatic Neck: supple, no JVD. Lungs: clear to auscultation bilaterally, no crackles no wheezes Heart: S1 and S2 regular, no murmurs, rubs or gallop Abdomen: soft, non-tender, non-distended normal bowel sounds Extremities: No edema, no clubbing or cyanosis Neuro: Awake alert, not oriented to person,place or time, less confused, moves all ext, no focal signs - Constitutional Vitals: Temp Pulse Resp BP Pulse Ox 97.5 F L 82 18 140/86 98 08/08/16 08:00 08/08/16 08:00 08/08/16 08:00 08/08/16 13:20 08/08/16 08:00 General appearance: Present: no acute distress, other (agitated, incomprehensible speech) Results - Labs CBC & Chem 7: 08/03/16 13:22 08/05/16 09:25 Labs: Laboratory Last Values WBC 10.0 K/mm3 (4.5-11.0) 08/03/16 13:22 RBC 4.58 M/mm3 (3.65-5.03) 08/03/16 13:22 Hgb 14.0 gm/dl (10.1-14.3) 08/03/16 13:22 Hct 42.2 % (30.3-42.9) 08/03/16 13:22 MCV 92 fl (79-97) 08/03/16 13:22 MCH 31 pg (28-32) 08/03/16 13:22 MCHC 33 % (30-34) 08/03/16 13:22 RDW 14.2 % (13.2-15.2) 08/03/16 13:22 Plt Count 183 K/mm3 (140-440) 08/03/16 13:22 Lymph % (Auto) 12.1 % (13.4-35.0) L 08/03/16 13:22 [place] % (Auto) 6.6 % (0.0-7.3) 08/03/16 13:22 Eos % (Auto) 1.8 % (0.0-4.3) 08/03/16 13:22 Baso % (Auto) 0.5 % (0.0-1.8) 08/03/16 13:22 Lymph # 1.2 K/mm3 (1.2-5.4) 08/03/16 13:22 [place] # 0.7 K/mm3 (0.0-0.8) 08/03/16 13:22 Eos # 0.2 K/mm3 (0.0-0.4) 08/03/16 13:22 Baso # 0.0 K/mm3 (0.0-0.1) 08/03/16 13:22 Seg Neutrophils % 79.0 % (40.0-70.0) H 08/03/16 13:22 Seg Neutrophils # 7.9 K/mm3 (1.8-7.7) H 08/03/16 13:22 Sodium 137 mmol/L (137-145) 08/05/16 09:25 Potassium 3.6 mmol/L (3.6-5.0) D 08/05/16 09:25 Chloride 100.9 mmol/L (98-107) 08/05/16 09:25 Carbon Dioxide 22 mmol/L (22-30) 08/05/16 09:25 Anion Gap 18 mmol/L 08/05/16 09:25 BUN 27 mg/dL (7-17) H 08/05/16 09:25 Creatinine 0.9 mg/dL (0.7-1.2) 08/05/16 09:25 Estimated GFR 59 ml/min 08/05/16 09:25 BUN/Creatinine Ratio 30.00 % 08/05/16 09:25 Glucose 123 mg/dL (65-100) H 08/05/16 09:25 POC Glucose 105 (70-105) 08/08/16 06:45 Calcium 8.7 mg/dL (8.4-10.2) 08/05/16 09:25 Magnesium 2.6 mg/dL (1.7-2.3) H 08/03/16 13:22 Total Bilirubin 0.3 mg/dL (0.1-1.2) 08/03/16 13:22 AST 16 units/L (5-40) 08/03/16 13:22 ALT 9 units/L (7-56) 08/03/16 13:22 Alkaline Phosphatase 51 units/L (35-129) 08/03/16 13:22 Ammonia 28.0 umol/L (25-60) 08/03/16 13:22 Total Creatine Kinase 28 units/L (30-135) L 08/03/16 13:22 CK-MB (CK-2) 1.1 ng/mL (0.0-4.0) 08/03/16 13:22 CK-MB (CK-2) Rel Index 3.9 (0-4) 08/03/16 13:22 Troponin T < 0.010 ng/mL (0.00-0.029) 08/03/16 13:22 Total Protein 7.3 g/dL (6.3-8.2) 08/03/16 13:22 Albumin 4.0 g/dL (3.9-5) 08/03/16 13:22 Albumin/Globulin Ratio 1.2 % 08/03/16 13:22 TSH 5.860 mlU/mL (0.270-4.200) H 08/03/16 13:22 Free T4 1.08 ng/dL (0.76-1.46) 08/03/16 13:22 Urine Color Yellow (Yellow) 08/08/16 13:13 Urine Turbidity Turbid (Clear) 08/08/16 13:13 Urine pH 7.0 (5.0-7.0) 08/08/16 13:13 Ur Specific [place] 1.018 (1.003-1.030) 08/08/16 13:13 Urine Protein 100 mg/dl mg/dL (Negative) 08/08/16 13:13 Urine Glucose (UA) Neg mg/dL (Negative) 08/08/16 13:13 Urine Ketones 20 mg/dL (Negative) 08/08/16 13:13 Urine Blood Sm (Negative) 08/08/16 13:13 Urine Nitrite Neg (Negative) 08/08/16 13:13 Urine Bilirubin Neg (Negative) 08/08/16 13:13 Urine Urobilinogen 4.0 mg/dL (<2.0) 08/08/16 13:13 Ur Leukocyte Esterase Sm (Negative) 08/08/16 13:13 Urine WBC (Auto) 40.0 /HPF (0.0-6.0) H 08/08/16 13:13 Urine RBC (Auto) 23.0 /HPF (0.0-6.0) 08/08/16 13:13 U Epithel Cells (Auto) 3.0 /HPF (0-13.0) 08/08/16 13:13 Urine Bacteria (Auto) 4+ /HPF (Negative) 08/08/16 13:13 Urine Mucus Few /HPF 08/03/16 14:51 Salicylates < 0.3 mg/dL (2.8-20.0) L 08/03/16 13:22 Urine Opiates Screen Presumptive negative 08/03/16 14:51 Urine Methadone Screen Presumptive negative 08/03/16 14:51 Acetaminophen < 15.0 ug/mL (10.0-30.0) 08/03/16 13:22 Ur Barbiturates Screen Presumptive negative 08/03/16 14:51 Valproic Acid 71.4 ug/mL (50-100) 08/03/16 13:22 Ur Phencyclidine Scrn Presumptive negative 08/03/16 14:51 Ur Amphetamines Screen Presumptive negative 08/03/16 14:51 U Benzodiazepines Scrn Presumptive negative 08/03/16 14:51 [place] 0.8 mmol/L (0.0-1.2) 08/05/16 09:25 Urine Cocaine Screen Presumptive negative 08/03/16 14:51 U Marijuana (THC) Screen Presumptive negative 08/03/16 14:51 Drugs of Abuse Note Disclamer 08/03/16 14:51 Plasma/Serum Alcohol < 0.01 gm% (0-0.07) 08/03/16 13:22
[2016-08-08] MEDS ORDERED: LEVAQUIN 750MG/150ML 150 ML IV ONE (14:00)
[2016-08-08] MEDS ORDERED: LEVAQUIN 500MG/100ML 100 ML IV SCH (14:00)
[2016-08-08 15:04] LABS: Hemoglobin 13.6 gm/dl (10.1-14.3); Mean Corpuscular HGB Conc 33 % (30-34); Mean Corpuscular Hemoglobin 30 pg (28-32); Mean Corpuscular Volume 91 fl (79-97); Platelet Count 198 K/mm3 (140-440); Red Blood Count 4.52 M/mm3 (3.65-5.03); White Blood Count 19.7 K/mm3 (4.5-11.0)
[2016-08-08 15:23] LABS: Anion Gap 18 mmol/L; Blood Urea Nitrogen 16 mg/dL (7-17); Calcium 8.5 mg/dL (8.4-10.2); Carbon Dioxide 25 mmol/L (22-30); Chloride 92.1 mmol/L (98-107); Glucose 147 mg/dL (65-100); Potassium 3.3 mmol/L (3.6-5.0); Sodium 132 mmol/L (137-145)
[2016-08-08] MEDS: KCL 10 MEQ in NACL 0.9% 1000 ML 1,000 ML IV SCH (17:31)
[2016-08-08] MEDS ORDERED: ESKALITH PO SCH (22:00)
[2016-08-08] MEDS: ZOCOR PO SCH (22:50)
[2016-08-08] MEDS: ESKALITH PO SCH (22:51)
[2016-08-09] MEDS: COREG PO SCH ×3 (03:19→21:28)
[2016-08-09] MEDS: KCL 10 MEQ in NACL 0.9% 1000 ML 1,000 ML IV SCH (07:17)
[2016-08-09] MEDS: ZESTRIL PO SCH (11:09)
[2016-08-09] MEDS: PROTONIX PO SCH (11:09)
[2016-08-09] MEDS: ECOTRIN PO SCH (11:09)
[2016-08-09] MEDS: HEPARIN SUB-Q SCH ×2 (11:10→21:29)
[2016-08-09 12:08] LABS: Mean Corpuscular HGB Conc 30 % (30-34); Mean Corpuscular Hemoglobin 31 pg (28-32); Mean Corpuscular Volume 100 fl (79-97); Platelet Count 168 K/mm3 (140-440); Red Blood Count 4.42 M/mm3 (3.65-5.03); Red Cell Distribution Width 15.4 % (13.2-15.2); White Blood Count 16.6 K/mm3 (4.5-11.0)
[2016-08-09 12:12] LABS: Hematocrit 44.4 % (30.3-42.9); Hemoglobin 13.5 gm/dl (10.1-14.3)
--- NOTE | 2016-08-09 12:12 | Progress Note ---
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 Judsonia was on hold. Judsonia level now normal, was 1.6 on admission. Judsonia resumed at 150 mg daily at bedtime. UTI. Started Levaquin IV and culture pending. RHIANNA due to ATN, now resolved. Hypokalemia. resolved Dementia at baseline. Resumed Aricept, Namenda Hypertension continue Coreg and lisinopril. DVT prophylaxis with Heparin subcut bid. Bluish discoloration of fingers both hands. Obtain arterial doppler. Discussed with Vasc surg. Full code status Disposition: Possibly discharge home tomorrow. Discussed with case management. Her does not want her to go to jail. History Interval history: less confused, no fever, urine with bad odor, bluish fingers both hands Hospitalist Physical - Physical exam Narrative exam: Gen appearance : Not in acute distress, HEENT: Normocephalic, atraumatic Neck: supple, no JVD. Lungs: clear to auscultation bilaterally, no crackles no wheezes Heart: S1 and S2 regular, no murmurs, rubs or gallop Abdomen: soft, non-tender, non-distended normal bowel sounds Extremities: moves all ext, mild bluish discoloration fingers both hands, Neuro: Awake alert, not oriented to person,place or time, less confused, moves all ext, no focal signs - Constitutional Vitals: Temp Pulse Resp BP Pulse Ox 97.7 F 80 16 147/67 100 08/09/16 08:00 08/09/16 08:00 08/09/16 08:00 08/09/16 08:00 08/09/16 08:00 General appearance: Present: no acute distress, other (agitated, incomprehensible speech) Results - Labs CBC & Chem 7: 08/09/16 11:17 08/09/16 11:17 Labs: Laboratory Last Values WBC 19.7 K/mm3 (4.5-11.0) H 08/08/16 14:23 RBC 4.52 M/mm3 (3.65-5.03) 08/08/16 14:23 Hgb 13.6 gm/dl (10.1-14.3) 08/08/16 14:23 Hct 41.0 % (30.3-42.9) 08/08/16 14:23 MCV 91 fl (79-97) 08/08/16 14:23 MCH 30 pg (28-32) 08/08/16 14:23 MCHC 33 % (30-34) 08/08/16 14:23 RDW 14.0 % (13.2-15.2) 08/08/16 14:23 Plt Count 198 K/mm3 (140-440) 08/08/16 14:23 Lymph % (Auto) 12.1 % (13.4-35.0) L 08/03/16 13:22 [place] % (Auto) 6.6 % (0.0-7.3) 08/03/16 13:22 Eos % (Auto) 1.8 % (0.0-4.3) 08/03/16 13:22 Baso % (Auto) 0.5 % (0.0-1.8) 08/03/16 13:22 Lymph # 1.2 K/mm3 (1.2-5.4) 08/03/16 13:22 [place] # 0.7 K/mm3 (0.0-0.8) 08/03/16 13:22 Eos # 0.2 K/mm3 (0.0-0.4) 08/03/16 13:22 Baso # 0.0 K/mm3 (0.0-0.1) 08/03/16 13:22 Seg Neutrophils % 79.0 % (40.0-70.0) H 08/03/16 13:22 Seg Neutrophils # 7.9 K/mm3 (1.8-7.7) H 08/03/16 13:22 Sodium 132 mmol/L (137-145) L 08/08/16 14:23 Potassium 3.3 mmol/L (3.6-5.0) L 08/08/16 14:23 Chloride 92.1 mmol/L (98-107) L 08/08/16 14:23 Carbon Dioxide 25 mmol/L (22-30) 08/08/16 14:23 Anion Gap 18 mmol/L 08/08/16 14:23 BUN 16 mg/dL (7-17) 08/08/16 14:23 Creatinine 0.8 mg/dL (0.7-1.2) 08/08/16 14:23 Estimated GFR > 60 ml/min 08/08/16 14:23 BUN/Creatinine Ratio 20.00 % 08/08/16 14:23 Glucose 147 mg/dL (65-100) H 08/08/16 14:23 POC Glucose 90 (70-105) 08/09/16 08:34 Calcium 8.5 mg/dL (8.4-10.2) 08/08/16 14:23 Magnesium 2.6 mg/dL (1.7-2.3) H 08/03/16 13:22 Total Bilirubin 0.3 mg/dL (0.1-1.2) 08/03/16 13:22 AST 16 units/L (5-40) 08/03/16 13:22 ALT 9 units/L (7-56) 08/03/16 13:22 Alkaline Phosphatase 51 units/L (35-129) 08/03/16 13:22 Ammonia 28.0 umol/L (25-60) 08/03/16 13:22 Total Creatine Kinase 28 units/L (30-135) L 08/03/16 13:22 CK-MB (CK-2) 1.1 ng/mL (0.0-4.0) 08/03/16 13:22 CK-MB (CK-2) Rel Index 3.9 (0-4) 08/03/16 13:22 Troponin T < 0.010 ng/mL (0.00-0.029) 08/03/16 13:22 Total Protein 7.3 g/dL (6.3-8.2) 08/03/16 13:22 Albumin 4.0 g/dL (3.9-5) 08/03/16 13:22 Albumin/Globulin Ratio 1.2 % 08/03/16 13:22 TSH 5.860 mlU/mL (0.270-4.200) H 08/03/16 13:22 Free T4 1.08 ng/dL (0.76-1.46) 08/03/16 13:22 Urine Color Yellow (Yellow) 08/08/16 13:13 Urine Turbidity Turbid (Clear) 08/08/16 13:13 Urine pH 7.0 (5.0-7.0) 08/08/16 13:13 Ur Specific [place] 1.018 (1.003-1.030) 08/08/16 13:13 Urine Protein 100 mg/dl mg/dL (Negative) 08/08/16 13:13 Urine Glucose (UA) Neg mg/dL (Negative) 08/08/16 13:13 Urine Ketones 20 mg/dL (Negative) 08/08/16 13:13 Urine Blood Sm (Negative) 08/08/16 13:13 Urine Nitrite Neg (Negative) 08/08/16 13:13 Urine Bilirubin Neg (Negative) 08/08/16 13:13 Urine Urobilinogen 4.0 mg/dL (<2.0) 08/08/16 13:13 Ur Leukocyte Esterase Sm (Negative) 08/08/16 13:13 Urine WBC (Auto) 40.0 /HPF (0.0-6.0) H 08/08/16 13:13 Urine RBC (Auto) 23.0 /HPF (0.0-6.0) 08/08/16 13:13 U Epithel Cells (Auto) 3.0 /HPF (0-13.0) 08/08/16 13:13 Urine Bacteria (Auto) 4+ /HPF (Negative) 08/08/16 13:13 Urine Mucus Few /HPF 08/03/16 14:51 Salicylates < 0.3 mg/dL (2.8-20.0) L 08/03/16 13:22 Urine Opiates Screen Presumptive negative 08/03/16 14:51 Urine Methadone Screen Presumptive negative 08/03/16 14:51 Acetaminophen < 15.0 ug/mL (10.0-30.0) 08/03/16 13:22 Ur Barbiturates Screen Presumptive negative 08/03/16 14:51 Valproic Acid 71.4 ug/mL (50-100) 08/03/16 13:22 Ur Phencyclidine Scrn Presumptive negative 08/03/16 14:51 Ur Amphetamines Screen Presumptive negative 08/03/16 14:51 U Benzodiazepines Scrn Presumptive negative 08/03/16 14:51 Judsonia 0.8 mmol/L (0.0-1.2) 08/05/16 09:25 Urine Cocaine Screen Presumptive negative 08/03/16 14:51 U Marijuana (THC) Screen Presumptive negative 08/03/16 14:51 Drugs of Abuse Note Disclamer 08/03/16 14:51 Plasma/Serum Alcohol < 0.01 gm% (0-0.07) 08/03/16 13:22
[2016-08-09 12:22] LABS: Anion Gap 19 mmol/L; Blood Urea Nitrogen 15 mg/dL (7-17); Calcium 8.2 mg/dL (8.4-10.2); Carbon Dioxide 19 mmol/L (22-30); Chloride 99.6 mmol/L (98-107); Glucose 72 mg/dL (65-100); Potassium 3.6 mmol/L (3.6-5.0); Sodium 134 mmol/L (137-145)
[2016-08-09] MEDS: ZOCOR PO SCH (21:28)
[2016-08-09] MEDS: ESKALITH PO SCH (21:28)
[2016-08-09] MEDS ORDERED: D5NS 1,000 ML IV SCH (23:00)
[2016-08-10 06:34] LABS: Hematocrit 37.6 % (30.3-42.9); Hemoglobin 12.7 gm/dl (10.1-14.3); Mean Corpuscular HGB Conc 34 % (30-34); Mean Corpuscular Hemoglobin 31 pg (28-32); Mean Corpuscular Volume 90 fl (79-97); Platelet Count 210 K/mm3 (140-440); Red Blood Count 4.16 M/mm3 (3.65-5.03); Red Cell Distribution Width 13.8 % (13.2-15.2)
[2016-08-10 06:52] LABS: BUN/Creatinine Ratio 28.57; Blood Urea Nitrogen 20 mg/dL (7-17); Calcium 8.5 mg/dL (8.4-10.2); Carbon Dioxide 26 mmol/L (22-30); Glucose 84 mg/dL (65-100); Potassium 3.6 mmol/L (3.6-5.0); Sodium 138 mmol/L (137-145)
[2016-08-10 07:04] LABS: Anion Gap 17 mmol/L
[2016-08-10] MEDS ORDERED: LEVAQUIN 250MG/50ML 50 ML IV SCH (10:00)
--- NOTE | 2016-08-10 10:48 | Discharge Summary ---
Providers - Providers Date of Admission: 08/03/16 15:38 Date of discharge: 08/10/16 Attending physician: FELICIA CORREA 08/03/16 17:19 Consult to Physician [CONS] Routine Consulting Provider: Reason For Exam: depression; dementia Place consult to:: psyche Notified:: yes Was contact made?: Yes 08/10/16 10:21 Consult to Physician [CONS] Routine Consulting Provider: REMBERTO MITCHELL Reason For Exam: bluish discoloration of fingers Place consult to:: Dr. Mitchell Primary care physician: AB GOSS Hospitalization Condition: Fair Disposition: DISCHARGED TO HOME OR SELFCARE - Discharge Diagnoses (1) Acute metabolic encephalopathy Status: Acute (2) UTI (urinary tract infection) Status: Acute (3) Dementia Status: Acute Core Measure Documentation - Palliative Care Palliative Care/ Comfort Measures: Not Applicable - Core Measures Any of the following diagnoses?: none Exam - Constitutional Vitals: Temp Pulse Resp BP Pulse Ox 98.3 F 83 16 125/70 100 08/10/16 07:50 08/10/16 07:50 08/10/16 07:50 08/10/16 07:50 08/10/16 07:50 Plan Activity: advance as tolerated Diet: other (Pureed diet) Additional Instructions: 1.Physician at SNF to see in 3-5 days. 2.Check Williamson level in 1 week. Follow up with: AB GOSS MD [Primary Care Provider] - 3-5 Days Prescriptions: Levofloxacin [Levaquin TAB] 500 mg PO Q48H #3 tablet [place] Carbonate [Eskalith] 150 mg PO QHS #30 capsule
[2016-08-10] MEDS: ECOTRIN PO SCH (12:14)
[2016-08-10] MEDS: ZESTRIL PO SCH (12:14)
[2016-08-10] MEDS: PROTONIX PO SCH (12:15)
[2016-08-10] MEDS: COREG PO SCH (12:15)
[2016-08-10] MEDS: HEPARIN SUB-Q SCH (12:20)
--- NOTE | 2016-08-10 13:49 | Consultation ---
History of Present Illness - Reason for Consult Consult date: 08/10/16 Evaluate for Possible Upper Extremity Ischemia Requesting physician: FELICIA CORREA - History of Present Illness This patient is an 86-year-old female that was admitted on 08/03/2016 due to altered mental status. She has underlying dementia and was at [facility]. Given the exacerbation of her underlying mental status, she was sent to the emergency room. During the course of this admission, she was noted to have bluish discoloration to the fingertips of the left hand. With concerns of possible upper extremity ischemia, a vascular surgery consult was requested to further evaluate. The patient is clearly confused and unable to supply a history. Therefore the history is taken from the medical record, and supplemented by her at the bedside. She denies pain at present. Past History Past Medical History: hypertension, other (dementia, depression) Past Surgical History: Other (unable to obtain) Social history: other (unable to obtain) Family history: other (unable to obtain) Medications and Allergies Allergies Allergy/AdvReac Type Severity Reaction Status Date / Time sertraline HCl [From Zoloft] Allergy Unknown Verified 08/03/16 13:01 venlafaxine HCl Allergy Unknown Verified 08/03/16 13:01 [From Effexor] Home Medications Medication Instructions Recorded Confirmed Last Taken Type Carvedilol [Coreg] 3.125 mg PO BID 08/03/16 08/03/16 Unknown History Divalproex [Honey Dr] 250 mg PO BID 08/03/16 08/03/16 Unknown History Donepezil [Aricept] 10 mg PO QHS 08/03/16 08/03/16 Unknown History Escitalopram Oxalate [Lexapro] 5 mg PO QAM 08/03/16 08/03/16 Unknown History Lisinopril [Zestril TAB] 20 mg PO QAM 08/03/16 08/03/16 Unknown History Memantine HCl [Namenda] 5 mg PO QAM 08/03/16 08/03/16 Unknown History Pantoprazole [Protonix TAB] 40 mg PO QAM 08/03/16 08/03/16 Unknown History Quetiapine Fumarate [SEROquel] 50 mg PO BID 08/03/16 08/03/16 Unknown History Simvastatin [Zocor TAB] 20 mg PO QHS 08/03/16 08/03/16 Unknown History Topiramate [Topamax TAB] 50 mg PO QAM 08/03/16 08/03/16 Unknown History Levofloxacin [Levaquin TAB] 500 mg PO Q48H #3 tablet 08/10/16 Unknown Rx [place] Carbonate [Eskalith] 150 mg PO QHS #30 capsule 08/10/16 Unknown Rx Active Meds: Active Medications Acetaminophen (Tylenol) 650 mg PO Q4H PRN PRN Reason: Pain MILD(1-3)/Fever >100.5/MAYES Last Admin: 08/10/16 12:16 Dose: 650 mg Aspirin (Ecotrin) 325 mg PO QDAY [facility] Last Admin: 08/10/16 12:14 Dose: 325 mg Carvedilol (Coreg) 3.125 mg PO BID [facility] Last Admin: 08/10/16 12:15 Dose: 3.125 mg Haloperidol Lactate (Haldol) 2 mg IM Q6H PRN PRN Reason: Agitation Last Admin: 08/04/16 18:52 Dose: 2 mg Heparin Sodium (Porcine) (Heparin) 5,000 unit SUB-Q Q12HR [facility] Last Admin: 08/10/16 12:20 Dose: 5,000 unit Hydralazine HCl (Apresoline) 5 mg IV Q6H PRN PRN Reason: Blood Pressure Last Admin: 08/07/16 17:21 Dose: 5 mg Dextrose/Sodium Chloride (D5ns) 1,000 mls @ 75 mls/hr IV DIRECT [facility] Levofloxacin/Dextrose (Levaquin 250mg/50ml) 50 mls @ 50 mls/hr IV Q24HR [facility] Last Admin: 08/10/16 12:13 Dose: 50 mls/hr [facility]inopril ([facility]estril) [facility] Last Admin: 08/10/16 12:14 Dose: 20 mg [place] Carbonate (Eskalith) 150 mg PO QHS [facility] Last Admin: 08/09/16 21:28 Dose: 150 mg Metoclopramide HCl (Reglan) 10 mg IV Q6H PRN PRN Reason: Nausea And Vomiting Ondansetron HCl (Zofran) 4 mg IV Q8H PRN PRN Reason: N/V unrelieved by Reglan Pantoprazole (Protonix) 40 [facility] Last Admin: 08/10/16 12:15 Dose: 40 mg Simvastatin (Zocor) 20 mg PO QHS [facility] Last Admin: 08/09/16 21:28 Dose: 20 mg Valproic Acid (Depakene) 250 mg FEEDTUBE Q12HR [facility] Last Admin: 08/10/16 12:14 Dose: 250 mg Review of Systems ROS unobtainable: due to mental status Exam - Constitutional Vitals: Temp Pulse Resp BP Pulse Ox 98.3 F 83 16 125/70 100 08/10/16 07:50 08/10/16 12:15 08/10/16 07:50 08/10/16 12:15 08/10/16 07:50 General appearance: Present: no acute distress - EENT Eyes: Present: EOM intact ENT: hearing intact - Neck Neck: Present: supple - Respiratory Respiratory effort: normal - Extremities Extremities: no ischemia, normal temperature, abnormal (the patient has several digits on her left hand that have what appears to be bruising from a lancet puncture) - Psychiatric Psychiatric: no appropriate mood/affect, no intact judgment & insight, cooperative - Neurologic Neurologic: no focal deficits Results - Labs CBC & Chem 7: 08/10/16 06:04 08/10/16 06:04 Labs: Abnormal lab results 08/09/16 08/10/16 08/10/16 Range/Units 20:37 06:04 06:04 WBC 12.0 H (4.5-11.0) K/mm3 BUN 20 H (7-17) mg/dL POC Glucose 43 L (70-105) 08/10/16 08/10/16 08/10/16 Range/Units 06:05 09:32 11:31 WBC (4.5-11.0) K/mm3 BUN (7-17) mg/dL POC Glucose 67 L 142 H 120 H (70-105) Assessment and Plan Patient is awake. She is clearly confused. She is cooperative, her hand was evaluated. It is warm and appears well-perfused. She has non-blanching bluish discoloration to the distal fingertips. There are several areas that appear to be puncture sites (I suspect from a lancet used for Accu-Cheks). The noninvasive arterial duplex shows multiphasic waveforms in both the radial and ulnar arteries. Digital waveforms were unable to be performed due to patient's noncompliance. She shows no evidence of acute ischemia, and this does not appear to be embolic phenomenon. Okay to discharge from a vascular standpoint. If she develops new areas of concern or these areas do not improve, the patient can be reevaluated as needed. - Patient Problems (1) Discoloration of skin of finger Current Visit: Yes Status: Acute (2) Altered mental status Current Visit: Yes Status: Acute
[2016-08-10] MEDS ORDERED: LEVAQUIN 750MG/150ML 150 ML IV SCH (14:00)
--- NOTE | 2016-08-10 14:30 | Vascular Lab Report ---
UPPER EXTREMITY ARTERIAL DUPLEX: REASON FOR EXAM: Digital discoloration. COMMENTS ON THE RIGHT: Biphasic waveforms are seen proximally. Biphasic waveforms are seen distally. No significant velocity gradients are identified. No significant plaque is identified. Findings are consistent with normal perfusion. COMMENTS ON THE LEFT: Biphasic waveforms are seen proximally. Biphasic waveforms are seen distally. No significant velocity gradients are identified. No significant plaque is identified. Findings are consistent with normal perfusion. IMPRESSION: RIGHT: Essentially normal arterial flow. LEFT:Essentially normal arterial flow.
[2016-08-10] MEDS ORDERED: PNEUMOVAX 23 IM ONE (15:30)
[2016-08-10] MEDS ORDERED: FLUARIX QUAD 2016-2017(36 MOS+) IM ONE (15:30)
[2016-08-10 17:08] VITALS: BP 146/65
== END 2016-08-10 18:11 | disposition home or self-care (01) | DRG 91 ==
LOC: ED 12:17 → 3A 15:38
PROVIDERS: ADMIT Hospitalist; ATTEND Internal Medicine
DX: G92 Toxic encephalopathy (principal); N17.0 Acute kidney failure with tubular necrosis; N39.0 Urinary tract infection, site not specified; I10 Essential (primary) hypertension; F03.90 Unspecified dementia, unspecified severity, without behavioral disturbance, psychotic disturbance, mood disturbance, and anxiety; G43.909 Migraine, unspecified, not intractable, without status migrainosus; F32.9 Major depressive disorder, single episode, unspecified; Z96.643 Presence of artificial hip joint, bilateral; T43.595A Adverse effect of other antipsychotics and neuroleptics, initial encounter; L60.8 Other nail disorders; Z90.49 Acquired absence of other specified parts of digestive tract; Z90.710 Acquired absence of both cervix and uterus; Z79.899 Other long term (current) drug therapy; Z88.8 Allergy status to other drugs, medicaments and biological substances
CPT/HCPCS: 36415; 70450; 73521; 80048; 80053; 80164; 80178; 80307; 80320; 81001; 82140; 82550; 82553; 82962; 83735; 84439; 84443; 84484; 85025; 85027; 87040; 87086; 90686; 90732; 93005; 93010; 93930; 96372; G0480; J0360; J1630; J1644; J1956; J3246; J3480; J7030